=== PATIENT | male | born 1980 | race Native Hawaiian/Other Pacific Islander ===

== ENCOUNTER 2018-05-09 05:03 | Emergency (ER) | payer OTHER ==
[~2018-05-09] VITALS: Ht 182.9 cm; Wt 99.8 kg
[2018-05-09 05:10] VITALS: TEMP 98.1
[2018-05-09] MEDS ORDERED: TRAZODONE HYDR150 MG PO (05:30)
[2018-05-09] MEDS ORDERED: LAMOTRIGINE150 MG PO (05:31)
[2018-05-09 06:25] VITALS: BP 138/90
== END 2018-05-09 06:25 | disposition home or self-care (01) ==
LOC: ED 05:03
DX: L73.8 Other specified follicular disorders (principal)
CPT/HCPCS: 99281

== ENCOUNTER 2018-05-11 03:21 | Emergency (ER) | payer OTHER ==
[~2018-05-11] VITALS: Ht 182.9 cm; Wt 99.8 kg
[~2018-05-11 03:21] MED LIST: LAMOTRIGINE150 MG PO; TRAZODONE HYDR150 MG PO
[2018-05-11 03:25] VITALS: BP 111/78; TEMP 98.1
== END 2018-05-11 04:10 | disposition home or self-care (01) ==
LOC: ED 03:21
DX: B95.8 Unspecified staphylococcus as the cause of diseases classified elsewhere (principal)
CPT/HCPCS: 96372; 99282; J1885

== ENCOUNTER 2023-04-26 15:24 | Observation (INO) | payer OTHER ==
[~2023-04-26] VITALS: Ht 185.4 cm; Wt 98.4 kg
[2023-04-26 15:24] VITALS: BP 147/89; TEMP 97.9
[2023-04-26 15:56] LABS: PLATELET COUNT 232 K/uL (142-355)
[2023-04-26 15:58] LABS: POTASSIUM 3.8 mmol/L (3.6-5.2)
[2023-04-26 16:00] VITALS: BP 143/95
[2023-04-26 16:30] VITALS: BP 132/96
[2023-04-26 18:08] VITALS: BP 134/89; TEMP 98; Ht 185.4 cm; Wt 98.4 kg
[2023-04-26 20:00] VITALS: BP 132/88; TEMP 98.6
[2023-04-27] VITALS: BP 136/68; TEMP 98.7
[2023-04-27 04:00] VITALS: BP 126/81; TEMP 99.2
[2023-04-27 08:00] VITALS: BP 133/63; TEMP 97.8
== END 2023-04-27 00:05 ==
LOC: ED 15:24 → MED/SURG 16:27
PROVIDERS: Family Medicine; ADMIT Internal Medicine Endocrinology, Diabetes & Metabolism; ATTEND Internal Medicine Endocrinology, Diabetes & Metabolism
DX: R07.89 Other chest pain (principal); R74.01 Elevation of levels of liver transaminase levels; R73.9 Hyperglycemia, unspecified; F19.10 Other psychoactive substance abuse, uncomplicated
CPT/HCPCS: 36415; 80053; 80307; 84484; 85027; 85379; 93005; 96372; 99221; 99284; G0378; J1650